=== PATIENT | male | born 1940 | race Two or more races ===

== ENCOUNTER → 2019-09-19 | Emergency (ER) | payer OTHER ==
[~2019-09-19] VITALS: Ht 175.3 cm; Wt 108.9 kg
[~2019-09-19] MED LIST: COZAAR100 MG PO; LOTRISONE CREAM45 GM {1, null}; TERBINAFINE HC250 MG PO
== END | disposition home or self-care (01) ==
LOC: ER 14:25
DX: B35.4 Tinea corporis (principal)